=== PATIENT | male | born 1950 | race Caucasian/White ===

== ENCOUNTER 2017-11-19 07:04 | Emergency (ER) | payer MEDICARE, BC ==
--- NOTE | 2017-11-19 07:35 | UC ---
General HPI - HPI Summary HPI Summary: Pt presents to with is . Pt states x 4 days progressive sob. Pt states thought related to his asthma and allergies. Pt did not take any treatment. Pt denies diaphoresis, lightheaadedness. Pt states since yesterday has had "an elephant heaviness on my chest" Pt with h/o htn - on meds. Pt with diet controlled hyperlipidemia. Pt without tobacco history. Father with cardiac hx. Pt's medications reviewed this visit - History of Current Complaint Stated Complaint: ALLERGIES/ASTHMA/SOB Time Seen by Provider: 11/19/17 07:21 Hx Obtained From: Patient, Family/Rod Puller Onset/Duration: Gradual Onset Timing: Constant Onset Severity: Mild Current Severity: Mild Pain Intensity: 4 Associated Signs & Symptoms: Positive: Chest Pain, SOB. Negative: Nausea - Allergy/Home Medications Allergies/Adverse Reactions: Allergies Allergy/AdvReac Type Severity Reaction Status Date / Time No Known Allergies Allergy Verified 11/19/17 07:17 Home Medications: Home Medications Diltiazem CD CAP* [Cardizem CD CAP*] 240 mg PO DAILY 11/19/17 [History Confirmed 11/19/17] Lisinopril TAB* [Prinivil TAB*] 20 mg PO DAILY 11/19/17 [History Confirmed 11/19] LoraTADine TAB(NF) [Claritin 10 MG TAB(NF)] 10 mg PO DAILY 11/19/17 [History Confirmed 11/19/17] PMH/Surg Hx/FS Hx/Imm Hx Previously Healthy: Yes Endocrine History: Dyslipidemia - diet controleld Cardiovascular History: Hypertension - Surgical History Surgical History: Yes Surgery Procedure, Year, and Place: TONSILLECTOMY - Family History Known Family History: Positive: Hypertension, Other - father CAD - Social History Occupation: Employed Full-time Lives: With Family Alcohol Use: Occasionally Substance Use Type: None Smoking Status (MU): Former Smoker Type: Cigarettes When Did the Patient Quit Smoking/Using Tobacco: 40 YRS AGO Review of Systems Constitutional: Negative Skin: Negative Eyes: Negative Respiratory: Shortness Of Breath Cardiovascular: Chest Pain All Other Systems Reviewed And Are Negative: Yes Physical Exam Triage Information Reviewed: Yes Appearance: Well-Appearing, Well-Nourished Vital Signs: reviewed at bedside as being taken Pt noted to have hypertension Vital Signs Reviewed: Yes Eyes: Positive: Conjunctiva Clear ENT: Positive: Hearing grossly normal Neck: Positive: Supple Respiratory: Positive: Chest non-tender, Lungs clear, Normal breath sounds, No respiratory distress, No accessory muscle use Cardiovascular: Positive: RRR, No Murmur, Pulses Normal Abdominal Exam: Normal Abdomen Description: Positive: Nontender, No Organomegaly, Soft Bowel Sounds: Positive: Present Musculoskeletal Exam: Normal Musculoskeletal: Positive: Strength Intact, ROM Intact Neurological Exam: Normal Neurological: Positive: Alert Psychological Exam: Normal Psychological: Positive: Normal Response To Family Skin Exam: Normal Diagnostics - EKG Cardiac Rate: NL - 76, regular T wave inversion V4-V6, biphasic T wave V3 - all new from EKG Cardiac Rhythm: Sinus: Normal Ectopy: None ST Segment: Normal Re-Evaluation - Re-Evaluation First Eval Re-Evaluation Time: 07:45 Change: Improved Comment: pt pain free s/p nitro x 1. BP improved 170/97 Course/Dx - Course Course Of Treatment: Pt with chest heaviness x 24 hours, substernal non- radiating. Pt with 4 days of SOB. EKG concerning for cardiac ischemia - changes new from 2014. Will give ASA. IV. nitro x 1 - reassess. refer to ED - Pt requesting [facility]. judd Barber - accepting pt in transfer - Differential Dx - Multi-Symptom Provider Diagnoses: chest heaviness. EKG changes Discharge - Sign-Out/Discharge Documenting (check all that apply): Discharge/Admit/Transfer - Discharge Plan Condition: Fair Disposition: TRANS HIGHER LVL OF CARE FAC Discharge Disposition Comment: [facility] - Dr. Barber Referrals: Eleanor Arrieta MD [Primary Care Provider] - - Billing Disposition and Condition Condition: FAIR Disposition: [facility]
[2017-11-19] MEDS ORDERED: Aspirin 81 mg CHEW TAB* 81 MG TAB.CHEW PO ONE (07:58)
[2017-11-19] MEDS ORDERED: NS 0.9% 1000 ML* 1,000 ML IV ONE (07:59)
[2017-11-19] MEDS ORDERED: Nitroglycerin TAB 0.4 MG* 0.4 MG TAB SL ONE (07:59)
[2017-11-19 08:10] VITALS: BP 170/97
== END 2017-11-19 07:45 | disposition short-term general hospital (02) ==
LOC: UCCORT 07:04
DX: R07.89 Other chest pain (principal); R94.31 Abnormal electrocardiogram [ECG] [EKG]; Z87.891 Personal history of nicotine dependence
CPT/HCPCS: 93005; 99204; A9270-GY; G0463